=== PATIENT | female | born 1945 | race Caucasian/White ===

== ENCOUNTER 2024-01-13 12:46 | Emergency (ER) | payer MEDICARE, BC ==
[~2024-01-13] VITALS: Ht 165.1 cm; Wt 97.3 kg
[2024-01-13] MEDS ORDERED: LOSARTAN PO (13:08)
[2024-01-13] MEDS ORDERED: PANTOPRAZOLE (13:09)
[2024-01-13] MEDS ORDERED: ATORVASTATIN PO (13:09)
[2024-01-13] MEDS ORDERED: IRON PO (13:10)
[2024-01-13] MEDS ORDERED: VITAMIN C PO (13:10)
[2024-01-13] MEDS ORDERED: MULTIVITAMIN1 EACH PO (13:11)
[2024-01-13 13:39] LABS: BASO # 0.02 K/mm3 (0.02-0.10); EOS # 0.07 K/mm3 (0.04-0.40); EOS % 1.1 % (1.0-5.0); HEMATOCRIT 34.3 % (37.0-47.0); HEMOGLOBIN 11.2 g/dL (12.5-16.0); LYMPH# 2.13 K/mm3 (1.50-4.00); MEAN CELL VOLUME 99 fl (78-100); MEAN CORPUSCULAR HEMOGLOBIN 32 pg (27-31); MEAN CORPUSCULAR HGB CONC 33 g/dL (33-37); MONO # 0.54 K/mm3 (0.20-0.80); NEU # 3.85 K/mm3 (1.40-6.50); PLATELET COUNT 195 K/mm3 (130-400); RED BLOOD COUNT 3.47 M/mm3 (4.10-5.30); RED CELL DISTRIBUTION WIDTH 13.7 % (11.5-14.5); WHITE BLOOD COUNT 6.6 K/mm3 (4.8-10.8)
[2024-01-13 13:46] LABS: ALBUMIN 3.9 g/dL (3.4-4.8)
[2024-01-13 13:47] LABS: CALCIUM 9.4 mg/dL (8.3-10.5)
[2024-01-13 13:49] LABS: TOTAL PROTEIN 6.9 g/dL (6.2-8.1)
[2024-01-13 13:50] LABS: TOTAL BILIRUBIN 0.4 mg/dL (0.2-1.2)
[2024-01-13] MEDS ORDERED: hydrALAZINE 20 MG/ML 1 ML VIAL IV ONE ×2 (14:15→15:00)
[2024-01-13] MEDS ORDERED: NS 500 ML IV SCH (14:30)
[2024-01-13] MEDS ORDERED: levETIRAcetam 1,000 MG in Syringe 1 EACH IV ONE (15:00)
[2024-01-13] MEDS ORDERED: Ondansetron 4 MG/2 ML VIAL IV ONE (15:15)
[2024-01-13 15:55] VITALS: BP 160/67
== END 2024-01-13 16:50 | disposition short-term general hospital (02) ==
LOC: ED 12:46
PROVIDERS: Physician Assistant
DX: S06.340A Traumatic hemorrhage of right cerebrum without loss of consciousness, initial encounter (principal); M54.6 Pain in thoracic spine; I12.9 Hypertensive chronic kidney disease with stage 1 through stage 4 chronic kidney disease, or unspecified chronic kidney disease; N18.9 Chronic kidney disease, unspecified; N17.9 Acute kidney failure, unspecified; W18.30XA Fall on same level, unspecified, initial encounter; Y92.219 Unspecified school as the place of occurrence of the external cause
CPT/HCPCS: J0360; J1953; J2405; J2765

== ENCOUNTER → 2024-04-01 | Outpatient (CLI) | payer MEDICARE, BC ==
[~2024-04-01] MED LIST: ATORVASTATIN PO; IRON PO; LOSARTAN PO; MULTIVITAMIN1 EACH PO; PANTOPRAZOLE; VITAMIN C PO
== END ==
LOC: RAD 09:51
DX: S22.070A Wedge compression fracture of T9-T10 vertebra, initial encounter for closed fracture (principal); W19.XXXA Unspecified fall, initial encounter

== ENCOUNTER → 2024-04-30 | Outpatient (CLI) | payer MEDICARE, BC ==
[2024-04-30 14:59] LABS: HEMATOCRIT 34.6 % (37.0-47.0); HEMOGLOBIN 11.3 g/dL (12.5-16.0); MEAN PLATELET VOLUME 9.2 fl (7.4-10.4); RED BLOOD COUNT 3.45 M/mm3 (4.10-5.30); RED CELL DISTRIBUTION WIDTH 12.8 % (11.5-14.5); WHITE BLOOD COUNT 7.5 K/mm3 (4.8-10.8)
[2024-04-30 15:02] LABS: CALCIUM 9.5 mg/dL (8.3-10.5)
== END ==
LOC: LAB 14:44
PROVIDERS: Family Medicine
DX: E78.2 Mixed hyperlipidemia (principal); I12.9 Hypertensive chronic kidney disease with stage 1 through stage 4 chronic kidney disease, or unspecified chronic kidney disease; N18.32 Chronic kidney disease, stage 3b

== ENCOUNTER → 2024-06-15 | Outpatient (CLI) | payer MEDICARE, BC ==
[~2024-06-15] MED LIST changes: +CEFDINIR300 MG PO; +CITALOPRAM HBR10 MG PO; +COZAAR 50MG50 MG/TAB PO; +LIPITOR 10M10 MG/TAB PO; +NORVASC 5MG5 MG/TAB PO; -PANTOPRAZOLE; +PANTOPRAZOLE PO; +PROTONIX TR40 M1 PO
[2024-06-15 10:21] LABS: CALCIUM 9.2 mg/dL (8.3-10.5)
== END ==
LOC: LAB 09:56
PROVIDERS: Family Medicine
DX: N18.32 Chronic kidney disease, stage 3b (principal)